=== PATIENT | female | born 1965 | race Caucasian/White ===

== ENCOUNTER 2020-11-24 21:03 | Inpatient (IN) | payer OTHER ==
[~2020-11-24] VITALS: Ht 170.2 cm; Wt 71.7 kg
[2020-11-25] VITALS: BP 118/73
[2020-11-25 01:00] VITALS: BP 118/73
--- NOTE | 2020-11-25 01:00 | NUR ---
RN NOTES: -AT 2230 RECEIVED A PHONE CALL FROM [facility], SPOKE WITH LISA/RN/ER. -PATIENT IS COMING DIRECT ADMIT, 55 Y.O. ,FEMALE, WITH C/O NAUSEA, VOMITING AND DIARRHEA TODAY, TEMPERATURE 99, SPO2-97% RA, SHE RECIEVED DILAUDID 0.5 MGX3, COMPAZINE/ZOFRAN, [place] IVF, COVID RAPID TEST DONE-NEGATIVE, CXR- NEGATIVE FOR ANY DISEASE, CT ABDOMEN/PELVIS--MILD MUCUSAL HYPERNEHANCEMENT OF THE RECTUM SUGGESTED OF PROTOCOLITIS, NO ATB STARTED, AMBULATORY, SKIN IS INTATC, WITH HOME MEDS LISTED, IV CANNULA ON THE RAC G#20, P/U BY CAROLYNN AT 9388.UNDER THE CARE OF .
--- NOTE | 2020-11-25 01:05 | NUR ---
RN NOTES: NEW ADMISSION --DIRECT ADMIT FROM [facility] AT 0030, ACCOMPANIED BY 2 EMT([facility]) VIA KALI,Barbie/OX3-4, ON RA, NO SIGN OF RESPIRATORY DISTRESS, PATIENT VERBALIZED SHE STILL HAVE ABDOMINAL PAIN OF 5-6/10, FEELING NAUSEATED.IV CANNULA IN SITE RAC G#20,PATENT, JUSTOWRITER OPERATOR/AURA NOTIFIED OF THE ADMISSION, AWAITING FOR ORDERS. BODY ASSESSMENT DONE, PATIENT HAS SKIN INTACT, NO BRUISES, DISCOLORATION, SHE ONLY HAVE OLD SURGICAL SCAR UNDER THE RIGHT AND LEFT BREAST,ABDOMEN AREA AND ON HE LEFT LOWER EXTREMITY.ORIENTED TO UNIT AND STAFF, FALL,SAFETY AND ASPIRATION PRECAUTION OBSERVED.MRSA SWAB DONE -SPECIMEN COLLECTED FROM THE LEFT NARES/READY FOR DRESS CAP MAKER.
[2020-11-25] MEDS ORDERED: MAGNESIUM HYDROXIDE 30 ML UDC PO PRN ×2 (02:00→03:30)
[2020-11-25] MEDS ORDERED: ACETAMINOPHEN 325 MG TABLET PO PRN ×2 (02:00→03:30)
[2020-11-25] MEDS ORDERED: Z GUARD REMEDY 2 OZ OINT TP PRN ×2 (02:00→03:30)
[2020-11-25] MEDS ORDERED: IV NS 0.9% 1,000 ML IV PRN ×2 (02:00→03:30)
[2020-11-25] MEDS ORDERED: MAG HYDROX/AL HYDROX/SIMETH 30 ML UDC PO PRN (02:00)
[2020-11-25] MEDS ORDERED: ONDANSETRON HCL/PF 4 MG/2 ML VIAL IVP PRN (02:00)
[2020-11-25] MEDS ORDERED: TRAZ-257 PO (02:43)
[2020-11-25] MEDS ORDERED: LEVO125T8 PO (02:43)
[2020-11-25] MEDS ORDERED: LIOT5TAB7 PO (02:43)
[2020-11-25] MEDS ORDERED: LORA-259 PO (02:43)
[2020-11-25] MEDS ORDERED: PANT40TA49 PO (02:43)
[2020-11-25] MEDS ORDERED: DEXT30TA10 PO (02:43)
[2020-11-25] MEDS ORDERED: ESCI10TA PO (02:43)
--- NOTE | 2020-11-25 02:57 | NUR ---
RN NOTES: -TO START IVF OF NS AT 100 CC/HR, UNABLE TO SCAN, MANUALLY ENTERED THE BARCODE.
[2020-11-25] MEDS: ONDANSETRON HCL/PF 4 MG/2 ML VIAL IVP PRN ×3 (03:40→20:25)
--- NOTE | 2020-11-25 03:53 | NUR ---
RN NOTES: AT 0300 PATIENT IS ASKING FOR HER ANTIEMETIC AND PAIN MEDICATION, F/U IN THE PHARMACY , MEDS RELEASED AT 0335, ZOFRAN GIVEN AT 0340, SHE REQUEST TO GIVE DILAUDID AFTER 15 MINUTES.
[2020-11-25] MEDS: HYDROMORPHONE 1 MG/1 ML DISP.SYRIN IV PRN ×3 (03:57→22:47)
--- NOTE | 2020-11-25 03:57 | NUR ---
RN NOTES: DILAUDID GIVEN PER PATIENT REQUEST, NON PHARMACOLOGIC INTERVENTION RENDERED, WARM BLANKET AND DIM LIT.
--- NOTE | 2020-11-25 04:12 | NUR ---
RN NOTES: -SHE FEELS RELIEVED AFTER THE ZOFRAN, SHE VOMITED VERY SMALL AMOUNT MORE OF SALIVA AND GASTRIC JUICE,PRIOR TO PRN MEDICATION. -NOW SHE SAY SHE FEELS BETTER.ENCOURAGE TO REST AND SLEEP.
--- NOTE | 2020-11-25 05:19 | NUR ---
RN NOTES: -HOME MEDICATION MED RECON DONE, APPLICATIONS INSTRUCTOR/AURA NOTIFIED.AWAITING FOR VERIFICATION
[2020-11-25 06:37] LABS: BASOPHILS % (AUTO) 0.3 % (0.0-2.0); HEMATOCRIT 34 % (33-45); HEMOGLOBIN 11.4 g/dL (11.5-14.8); LYMPHOCYTES # (AUTO) 0.7 /CMM (0.8-4.8); LYMPHOCYTES % (AUTO) 20.1 % (20.0-44.0); MEAN CORPUSCULAR HGB CONC 33 g/dl (31.0-36.0); MEAN CORPUSCULAR VOLUME 83 fL (82-100); MONOCYTES # (AUTO) 0.2 /CMM (0.1-1.30); MONOCYTES % (AUTO) 5.5 % (2.0-12.0); NEUTROPHILS # (AUTO) 2.5 /CMM (1.8-8.9); NEUTROPHILS % (AUTO) 74.1 % (43.0-81.0); PLATELET COUNT (AUTO) 165 /CMM (150-450); WHITE BLOOD COUNT (AUTO) 3.3 K/uL (4.3-11.0)
--- NOTE | 2020-11-25 07:02 | NUR ---
RN NOTES: -ABLE TO REST AND SLEEP, ASSISTED TO THE BATHROOM , IVF ONGOING, CALLS AND NEEDS ANTICIPATED.NO NAUSEA AND VOMITING, NO DIARRHEA IN THE MORNING. -FOR LAB TEST IN THE MORNING, ENDORSED FOR CONTINUITY OF CARE.
[2020-11-25 07:20] LABS: ALANINE AMINOTRANSFERASE 10 U/L (12-78); ALBUMIN 2.9 g/dL (3.4-5.0); ALKALINE PHOSPHATASE 119 U/L (46-116); ASPARTATE AMINOTRANSFERASE 14 U/L (15-37); BILIRUBIN,DIRECT 0.1 mg/dL (0.0-0.2); BILIRUBIN,TOTAL 0.5 mg/dL (0.2-1.0); CALCIUM, SERUM 8.1 mg/dL (8.5-10.1); CARBON DIOXIDE 22 mmol/L (21-32); CHLORIDE 106 mmol/L (98-107); CREATININE 0.7 mg/dL (0.6-1.3); GLUCOSE 98 mg/dL (74-106); MAGNESIUM 1.8 mg/dL (1.8-2.4); PHOSPHORUS 2.9 mg/dL (2.5-4.9); POTASSIUM 3.3 mmol/L (3.5-5.1); SODIUM SERUM 137 mmol/L (136-145); TOTAL PROTEIN, SERUM 5.9 g/dL (6.4-8.2); UREA NITROGEN, BLOOD 13 mg/dL (7-18)
[2020-11-25 07:38] LABS: CHOLESTEROL 106 mg/dL (<200); HDL CHOLESTEROL 47 mg/dL (40-60); LDL 50 mg/dL (0-99); THYROID STIMULATING HORMONE 0.855 uIU/mL (0.358-3.74); TRIGLYCERIDES 65 mg/dL (30-150)
[2020-11-25 08:00] VITALS: BP 116/81
--- NOTE | 2020-11-25 08:05 | NUR ---
MS RN OPENING NOTE RECEIVED PATIENT IN BED, ASLEEP, BUT EASILY AWAKEN BY VERBAL OR TOUCH STIMULI. AMBULATORY WITH STAND BY ASSIST. NO SHORTNESS OF BREATH NOTED. ON ROOM AIR. PATIENT HAS NO S/S OF PAIN OR DISCOMFORT AT THIS TIME. SAFETY MEASURES IN PLACE: CALL LIGHT WITHIN REACH, BED IN LOCKED AND LOWEST POSITION, SIDE RAILS UP. WILL MONITOR PATIENT.
[2020-11-25] MEDS: DOXYCYCLINE 100 MG in IV D5W 100 ML IV SCH ×2 (09:10→20:19)
[2020-11-25] MEDS: HYDROCODONE/APAP 5/325MG TABLET PO PRN (09:32)
--- NOTE | 2020-11-25 09:45 | NUR ---
MS/RN NOTES PATIENT WAS HAVING ANXIETY. PER PATIENT SHE IS TAKING LORAZEPAM 1MG PRN AT HOME. REPORTED ASSESSMENT TO BRENNAN QUINN NP. PROTECTION OFFICER PRESCRIBED LORAZEPAM 1MG PO ONE TIME ONLY. ORDER CARRIED OUT. WILL CONTINUE TO MONITOR.
[2020-11-25] MEDS ORDERED: LORAZEPAM 1 MG TABLET PO ONE (10:00)
[2020-11-25] MEDS ORDERED: POTASSIUM CHLORIDE 20 MEQ TAB.PRT.SR PO SCH (11:30)
--- NOTE | 2020-11-25 13:55 | NUR ---
MS/RN NOTES DR. ZAMBRANO ORDER STOOL COLLECTION FOR C DIFF AND ADVANCE DIET TOLERATED. NOTED AND CARRIED OUT.
[2020-11-25 16:00] VITALS: BP 132/76
--- NOTE | 2020-11-25 17:04 | NUR ---
MS/RN NOTES PATIENT HAS NO ADVERSE REACTION TO FULL LIQUID. TOLERATING WELL. NO NAUSEA AND VOMITING. ADVANCED DIET TO SOFT DIET.
[2020-11-25] MEDS: IV NS 0.9% 1,000 ML IV PRN (17:16)
--- NOTE | 2020-11-25 18:51 | NUR ---
MS DON OPENING NOTES PATIENT IN BED, AWAKE AND ORIENTEDX1-2, A PLEASANT 89 YEAR OLD FEMALE WITH A DIAGNOSIS OF RIGHT FOOT CELLULITIS. PATIENT ALSO HAVE DEMENTIA. AMBULATORY WITH ASSISTANCE. NO SHORTNESS OF BREATH NOTED. ON ROOM AIR. PATIENT HAS NO S/S OF PAIN OR DISCOMFORT AT THIS TIME. IV ACCESS ON RIGHT FOREARM GAUGE #24 PATENT AND ON HEPLOCK. SAFETY MEASURES IN PLACE: CALL LIGHT WITHIN REACH, BED IN LOCKED AND LOWEST POSITION, SIDE RAILS UP. WILL ENDORSE PATIENT TO THE NEXT SHIFT FOR CONTINUITY OF CARE. Addendum: 11/25/20 at 1856 by MIKE MARTINES RN ERROR. WRONG PATIENT.
--- NOTE | 2020-11-25 19:14 | NUR ---
MS RN CLOSING NOTES PATIENT IN BED, ASLEEP,ALERT AND ORIENTED X4, ABLE TO MAKE NEEDS KNOWN. PATIENT HAS PENDING C-DIFF RESULT CURRENTLY ON CONTACT PRECAUTION UNTIL RESULT COMES OUT. AMBULATORY. NO SHORTNESS OF BREATH NOTED. ON ROOM AIR. ALL MEDS AND ORDERS CARRIED OUT. PATIENT HAS NO S/S OF PAIN OR DISCOMFORT AT THIS TIME. SAFETY MEASURES IN PLACE: CALL LIGHT WITHIN REACH, BED IN LOCKED AND LOWEST POSITION, SIDE RAILS UP. WILL ENDORSE PATIENT TO THE NEXT SHIFT FOR CONTINUITY OF CARE.
[2020-11-25 20:00] VITALS: BP 127/72
[2020-11-25] MEDS: MAG HYDROX/AL HYDROX/SIMETH 30 ML UDC PO PRN (20:50)
--- NOTE | 2020-11-25 20:56 | NUR ---
MS RN OPENING NOTES PATIENT WAS SEEN AWAKE IN BED. PATIENT IS ALERT AND ORIENTED X4. PATIENT IS ABLE TO MAKE HER NEEDS KNOWN. PATIENT IS ON ROOM AIR WITH NO RESPIRATORY DISTRESS NOTED. PATIENT HAS AN IV ACCESS ON HER RIGHT AC G#20 WHICH IS INTACT, PATENT, AND FLUSHING WELL. SAFETY MEASURES IMPLEMENTED: BED LOCKED, SIDE RAILS UP X2, AND CALL LIGHT IS WITHIN EASY REACH OF THE PATIENT. WILL CONTINUE TO MONITOR THE PATIENT.
[2020-11-25] MEDS: LORAZEPAM 1 MG TABLET PO SCH (22:12)
[2020-11-25] MEDS: TRAZODONE 50 MG TABLET PO SCH (22:12)
[2020-11-26 07:09] LABS: BASOPHILS % (AUTO) 0.7 % (0.0-2.0); EOSINOPHILS % (AUTO) 2.2 % (0.0-6.0); HEMATOCRIT 32 % (33-45); HEMOGLOBIN 10.6 g/dL (11.5-14.8); LYMPHOCYTES # (AUTO) 0.9 /CMM (0.8-4.8); LYMPHOCYTES % (AUTO) 39.9 % (20.0-44.0); MEAN CORPUSCULAR HGB CONC 33 g/dl (31.0-36.0); MEAN CORPUSCULAR VOLUME 83 fL (82-100); MONOCYTES # (AUTO) 0.3 /CMM (0.1-1.30); MONOCYTES % (AUTO) 11.5 % (2.0-12.0); NEUTROPHILS # (AUTO) 1.1 /CMM (1.8-8.9); NEUTROPHILS % (AUTO) 45.7 % (43.0-81.0); PLATELET COUNT (AUTO) 143 /CMM (150-450); RED BLOOD CELL COUNT(AUTO) 3.88 MIL/uL (4.0-5.2); WHITE BLOOD COUNT (AUTO) 2.3 K/uL (4.3-11.0)
[2020-11-26 07:40] LABS: CALCIUM, SERUM 8.1 mg/dL (8.5-10.1); CREATININE 0.7 mg/dL (0.6-1.3); MAGNESIUM 1.7 mg/dL (1.8-2.4); PHOSPHORUS 2.9 mg/dL (2.5-4.9); POTASSIUM 3.6 mmol/L (3.5-5.1)
--- NOTE | 2020-11-26 07:42 | NUR ---
MS RN OPENING NOTES PATIENT WAS SEEN RESTING IN BED . PATIENT IS ALERT AND ORIENTED X4. PATIENT IS ABLE TO MAKE HER NEEDS KNOWN. PATIENT IS ON ROOM AIR WITH NO RESPIRATORY DISTRESS NOTED. PATIENT HAS AN IV ACCESS ON HER RIGHT AC G#20 WHICH IS INTACT, PATENT, AND FLUSHING WELL. PATIENT IS ON CONTACT ISOLATION PENDING CDIFF RESULTS. SAFETY MEASURES IMPLEMENTED: BED LOCKED, SIDE RAILS UP X2, AND CALL LIGHT IS WITHIN EASY REACH OF THE PATIENT. WILL CONTINUE TO MONITOR THE PATIENT
--- NOTE | 2020-11-26 07:53 | NUR ---
MS RN CLOSING NOTES PATIENT WAS SEEN SLEEPING IN BED. PATIENT IS ALERT AND ORIENTED X4. PATIENT IS ABLE TO MAKE HER NEEDS KNOWN. PATIENT IS ON ROOM AIR WITH NO RESPIRATORY DISTRESS NOTED. PATIENT HAS AN IV ACCESS ON HER RIGHT WRIST G#22 WHICH IS INTACT, PATENT, AND FLUSHING WELL. SAFETY MEASURES IMPLEMENTED: BED LOCKED, SIDE RAILS UP X2, AND CALL LIGHT IS WITHIN EASY REACH OF THE PATIENT. ENDORSED CARE TO DAY SHIFT NURSE.
[2020-11-26 08:00] VITALS: BP 123/71
[2020-11-26] MEDS: ESCITALOPRAM OXALATE (10 MG) 10 MG TABLET PO SCH (08:07)
[2020-11-26] MEDS: PANTOPRAZOLE 40 MG TABLET.DR PO SCH (08:07)
[2020-11-26] MEDS: LIOTHYRONINE SODIUM (5 MCG/TA 5 MCG TABLET PO SCH (08:07)
[2020-11-26] MEDS: LEVOTHYROXINE SODIUM 125 MCG TABLET PO SCH (08:07)
[2020-11-26] MEDS: DOXYCYCLINE 100 MG in IV D5W 100 ML IV SCH ×2 (08:08→20:29)
[2020-11-26] MEDS: ONDANSETRON HCL/PF 4 MG/2 ML VIAL IVP PRN ×3 (08:15→20:28)
[2020-11-26] MEDS: HYDROMORPHONE 1 MG/1 ML DISP.SYRIN IV PRN (09:51)
[2020-11-26 10:44] LABS: ALBUMIN 2.7 g/dL (3.4-5.0); BILIRUBIN,DIRECT 0.1 mg/dL (0.0-0.2); BILIRUBIN,TOTAL 0.3 mg/dL (0.2-1.0); TOTAL PROTEIN, SERUM 5.4 g/dL (6.4-8.2)
[2020-11-26] MEDS: Magnesium 1GM/D5W 100ML PREMIX 100 ML IV SCH ×2 (11:15→12:03)
[2020-11-26] MEDS: IV NS 0.9% 1,000 ML IV PRN (12:03)
[2020-11-26] MEDS: HYDROCODONE/APAP 5/325MG TABLET PO PRN ×2 (14:41→20:29)
[2020-11-26 16:00] VITALS: BP 114/68
--- NOTE | 2020-11-26 18:29 | NUR ---
MS RN CLOSING NOTES PATIENT IN BED,ALERT AND ORIENTED X4, ABLE TO MAKE NEEDS KNOWN. PATIENT IS BREATHING EVENLY AND UNLABORED ON ROOM AIR. NO DISCOMFORT AT THIS TIME. PATIENT HAS PENDING C-DIFF RESULT CURRENTLY ON CONTACT PRECAUTION UNTIL RESULT COMES OUT. PT IS AMBULATORY. ALL MEDS AND ORDERS CARRIED OUT. PRN PAIN MEDICATION GIVEN ORDERED. PATIENT HAS NO S/S OF PAIN OR DISCOMFORT AT THIS TIME. SAFETY MEASURES IN PLACE: CALL LIGHT WITHIN REACH, BED IN LOCKED AND LOWEST POSITION, SIDE RAILS UP. WILL ENDORSE TO ONCOMING SHIFT
--- NOTE | 2020-11-26 19:20 | NUR ---
MS RN NOTE PATIENT IN BED. A/OX4. FAMILY MEMBER IN THE ROOM WITH PATIENT. NO DISTRESS NOTED. NO C/O PAIN DAGO. R. WRIST IV RUNNING NS 100 ML/HR. SAFETY IN PLACE: BED IN LOCKED, LOWEST POSITION. CALL LIGHT WITHIN REACH. WILL CONTINUE TO MONITOR.
[2020-11-26 20:00] VITALS: BP 118/66
--- NOTE | 2020-11-26 20:30 | NUR ---
MS RN NOTES PATIENT C/O PAIN AND NAUSEA. GIVEN ZOFRAN AND NORCO PRN. WILL REASSESS.
[2020-11-26] MEDS: TRAZODONE 50 MG TABLET PO SCH (22:34)
[2020-11-26] MEDS: LORAZEPAM 1 MG TABLET PO SCH (22:34)
[2020-11-26] MEDS: MAG HYDROX/AL HYDROX/SIMETH 30 ML UDC PO PRN (22:46)
--- NOTE | 2020-11-26 22:48 | NUR ---
MS RN NOTES PATIENT REPORTS OF STOMACH ACHe AND ASKED FOR MAALOX. GIVEN PRN.
[2020-11-26] MEDS ORDERED: LEVOFLOXACIN 500 MG /D5W 100ML 100 ML IV ONE (23:06)
[2020-11-26] MEDS ORDERED: METRONIDAZOLE 500MG/ NS 100ML 100 ML IV ONE (23:07)
[2020-11-26] MEDS: METRONIDAZOLE 500MG/ NS 100ML 500 MG in PREMIX 1 EA IV SCH (23:10)
[2020-11-26] MEDS: LEVOFLOXACIN 500 MG /D5W 100ML 500 MG in PREMIX 1 EA IV SCH (23:10)
[2020-11-27] MEDS: IV NS 0.9% 1,000 ML IV PRN ×2 (00:16→10:50)
[2020-11-27] MEDS: ONDANSETRON HCL/PF 4 MG/2 ML VIAL IVP PRN ×3 (02:48→21:33)
[2020-11-27] MEDS: HYDROCODONE/APAP 5/325MG TABLET PO PRN (02:49)
--- NOTE | 2020-11-27 03:02 | NUR ---
MS RN NOTES PATIENT C/O NAUSEA AND 7/10 PAIN IN THE ABDOMEN. ADMINISTERED ZOFRAN AND NORCO 5-325. WILL REASSESS.
[2020-11-27 04:46] VITALS: BP 118/66
--- NOTE | 2020-11-27 05:34 | NUR ---
MS RN NOTES FLAGYL NOT HANGED @0500. FLAGYL NOT ON CASSETTE, MADE THE CHARGE NURSE KNOWN AND SAID IT WAS OKAY TO NOT HANG IT YET SINCE IT HAS ONLY BEEN 6 HRS AND IT'S Q8HRS.
--- NOTE | 2020-11-27 06:21 | NUR ---
MS RN NOTES PATIENT IN BED. A/OX4. NO S/S OF DISTRESS. PATIENT ABLE TO MAKE NEEDS KNOWN AND ALL NEEDS ATTENDED. ISOLATION PRECAUTION IN PLACE. MEDICATIONS ADMINISTERED. SAFETY KEPT IN PLACE THE WHOLE SHIFT: BED IN LOWEST, LOCKED POSITION; CALL LIGHT WITHIN REACH. NO SIGNIFICANT CHANGE SINCE LAST SHIFT. WILL ENDORSE CARE TO MORNING SHIFT NURSE
[2020-11-27 06:27] LABS: BASOPHILS % (AUTO) 0.7 % (0.0-2.0); EOSINOPHILS % (AUTO) 1.9 % (0.0-6.0); HEMATOCRIT 29 % (33-45); HEMOGLOBIN 9.7 g/dL (11.5-14.8); LYMPHOCYTES # (AUTO) 0.8 /CMM (0.8-4.8); LYMPHOCYTES % (AUTO) 33.4 % (20.0-44.0); MEAN CORPUSCULAR HGB CONC 33 g/dl (31.0-36.0); MEAN CORPUSCULAR VOLUME 82 fL (82-100); MONOCYTES # (AUTO) 0.2 /CMM (0.1-1.30); MONOCYTES % (AUTO) 9.2 % (2.0-12.0); NEUTROPHILS # (AUTO) 1.4 /CMM (1.8-8.9); NEUTROPHILS % (AUTO) 54.8 % (43.0-81.0); PLATELET COUNT (AUTO) 134 /CMM (150-450); RED BLOOD CELL COUNT(AUTO) 3.52 MIL/uL (4.0-5.2); WHITE BLOOD COUNT (AUTO) 2.5 K/uL (4.3-11.0)
[2020-11-27 07:02] LABS: CALCIUM, SERUM 7.3 mg/dL (8.5-10.1); CREATININE 0.6 mg/dL (0.6-1.3); MAGNESIUM 1.7 mg/dL (1.8-2.4); PHOSPHORUS 3.2 mg/dL (2.5-4.9); POTASSIUM 4.1 mmol/L (3.5-5.1)
[2020-11-27] MEDS: METRONIDAZOLE 500MG/ NS 100ML 500 MG in PREMIX 1 EA IV SCH ×3 (07:15→21:23)
[2020-11-27] MEDS: PANTOPRAZOLE 40 MG TABLET.DR PO SCH (07:37)
[2020-11-27] MEDS: LEVOTHYROXINE SODIUM 125 MCG TABLET PO SCH (07:37)
--- NOTE | 2020-11-27 07:57 | NUR ---
MS COMMUNITY AIDE Opening Notes: Patient was received in bed alert and orientated x 4. Patient is on room air with no s/s of respiratory distress with even non-labored breathing. Patient on isolation precautions to rule out C-Diff. IV access intact and patent currently infusing NS @ 100 ml/hr. Skin warm and dry to touch. Safety precautions implemented with bed locked, bed in lowest position , bilateral side rails up, bed alarm on and call light within easy reach. Will continue to monitor patient.
[2020-11-27 08:00] VITALS: BP 112/71
[2020-11-27] MEDS: ESCITALOPRAM OXALATE (10 MG) 10 MG TABLET PO SCH (08:14)
[2020-11-27] MEDS: LIOTHYRONINE SODIUM (5 MCG/TA 5 MCG TABLET PO SCH (08:14)
[2020-11-27] MEDS: Magnesium 1GM/D5W 100ML PREMIX 100 ML IV SCH ×2 (10:49→12:15)
[2020-11-27 12:07] LABS: LYMPHOCYTES % (MANUAL) 45 % (16-48); MONOCYTES % (MANUAL) 5 % (0-11.0); NEUTROPHILS % (MANUAL) 50 (42-76)
[2020-11-27] MEDS ORDERED: CEFTRIAXONE 1 G in IV D5W 50 ML IV SCH (14:00)
[2020-11-27 15:57] VITALS: BP 128/67
[2020-11-27 16:07] LABS: H. PYLORI AB IgA <9.0 units (0.0-8.9)
--- NOTE | 2020-11-27 18:06 | NUR ---
MS DATA ANALYST CLOSING NOTES: PATIENT IN BED RESTING COMFORTABLY A&O X 4, ON ROOM AIR WITH NO S/S OF RESPIRATORY DISTRESS W/ EVEN AND NON-LABORED BREATHING. IV ACCESS INTACT AND PATENT INFUSING 100ML/HR OF NS. PATIENT PRESENTING NO SIGNS OF N/V AT THIS TIME. MET ALL OF PATIENTS NEEDS. SKIN KEPT CLEAN, WARM AND DRY TO TOUCH. SAFETY PRECAUTIONS IMPLEMENTED WITH BED LOCKED, BED IN LOWEST POSITION, BILATERAL SIDE RAILS UP AND CALL LIGHT WITHIN EASY REACH. WILL ENDORSE PLAN OF CARE TO UPCOMING RN.
--- NOTE | 2020-11-27 19:26 | NUR ---
MS RN OPENING NOTES: PATIENT WAS SEEN AWAKE IN BED. PATIENT IS A&O X 4. PATIENT IS ON ROOM AIR WITH NO S/S OF RESPIRATORY DISTRESS. PATIENT HAS AN IV ACCESS ON HER RIGHT WRIST WHICH IS INTACT, PATENT, AND FLUSHES WELL. SAFETY PRECAUTIONS IMPLEMENTED WITH BED LOCKED, BED IN LOWEST POSITION, BILATERAL SIDE RAILS UP AND CALL LIGHT WITHIN EASY REACH. WILL ENDORSE PLAN OF CARE TO UPCOMING RN. Addendum: 11/27/20 at 1931 by ARNEL BLACKBURN RN MS RN OPENING NOTES: PATIENT WAS SEEN AWAKE IN BED. PATIENT IS A&O X 4. PATIENT IS ON ROOM AIR WITH NO S/S OF RESPIRATORY DISTRESS. PATIENT HAS AN IV ACCESS ON HER RIGHT WRIST WHICH IS INTACT, PATENT, AND FLUSHES WELL. SAFETY PRECAUTIONS IMPLEMENTED: BED LOCKED, SIDE RAILS UP X2, AND CALL LIGHT IS WITHIN EASY REACH. WILL CONTINUE TO MONITOR THE PATIENT.
[2020-11-27 20:00] VITALS: BP 122/67
[2020-11-27] MEDS: LORAZEPAM 1 MG TABLET PO SCH (21:30)
[2020-11-27] MEDS: TRAZODONE 50 MG TABLET PO SCH (21:30)
[2020-11-27] MEDS: LEVOFLOXACIN 500 MG /D5W 100ML 500 MG in PREMIX 1 EA IV SCH (23:00)
[2020-11-28] MEDS: ONDANSETRON HCL/PF 4 MG/2 ML VIAL IVP PRN ×3 (03:42→15:33)
[2020-11-28] MEDS: HYDROCODONE/APAP 5/325MG TABLET PO PRN ×3 (03:56→15:36)
[2020-11-28] MEDS: METRONIDAZOLE 500MG/ NS 100ML 500 MG in PREMIX 1 EA IV SCH (05:35)
[2020-11-28 06:41] LABS: CALCIUM, SERUM 7.4 mg/dL (8.5-10.1); CREATININE 0.7 mg/dL (0.6-1.3); MAGNESIUM 1.8 mg/dL (1.8-2.4); POTASSIUM 3.9 mmol/L (3.5-5.1)
[2020-11-28] MEDS: IV NS 0.9% 1,000 ML IV PRN (06:49)
--- NOTE | 2020-11-28 07:44 | NUR ---
MS RN OPENING NOTE RECEIVED PATIENT SLEEPING IN BED. EASILY AWAKENED. A/O X4. ON ROOM AIR, TOLERATING WELL. NO SOB NOTED. IN NO APPARENT DISTRESS. IV ACCESS ON R WRIST #22 G, INTACT AND PATENT, NS CURRENTLY RUNNING AT 100 ML/HR. SAFETY MEASURES MAINTAINED. BED IN LOWEST POSITION, BRAKES LOCKED. SIDE RAILS UP X2. CALL LIGHT WITHIN REACH. WILL CONTINUE PLAN OF CARE.
--- NOTE | 2020-11-28 07:49 | NUR ---
MS RN CLOSING NOTES PATIENT WAS SEEN SLEEPING IN BED. PATIENT IS A&O X 4. PATIENT IS ON ROOM AIR WITH NO S/S OF RESPIRATORY DISTRESS. PATIENT IS ABLE TO MAKE HER NEEDS KNOWN. PATIENT HAS AN IV ACCESS ON HER RIGHT WRIST WHICH IS INTACT, PATENT, AND FLUSHES WELL. SAFETY PRECAUTIONS IMPLEMENTED WITH BED LOCKED, SIDE RAILS UP, AND CALL LIGHT WITHIN EASY REACH. ENDORSED CARE TO DAY SHIFT NURSE.
[2020-11-28] MEDS: PANTOPRAZOLE 40 MG TABLET.DR PO SCH (07:50)
[2020-11-28] MEDS: LEVOTHYROXINE SODIUM 125 MCG TABLET PO SCH (07:50)
[2020-11-28 08:00] VITALS: BP 132/80
[2020-11-28] MEDS: LIOTHYRONINE SODIUM (5 MCG/TA 5 MCG TABLET PO SCH (08:03)
[2020-11-28] MEDS: ESCITALOPRAM OXALATE (10 MG) 10 MG TABLET PO SCH (08:03)
--- NOTE | 2020-11-28 08:07 | NUR ---
MS RN NOTE: PAIN PATIENT VERBALIZED PAIN ON HIS STOMACH RADIATING FROM LLQ TO RLQ. PAIN IS 8/10. NORCO 5/325 MG PO PRN GIVEN. WILL CONTINUE TO MONITOR THROUGHOUT THE SHIFT.
[2020-11-28] MEDS ORDERED: METRONIDAZOLE 500 MG TABLET PO SCH (13:00)
[2020-11-28] MEDS ORDERED: METR500T PO (14:27)
[2020-11-28] MEDS ORDERED: LEVO500T90 PO (14:27)
--- NOTE | 2020-11-28 16:50 | NUR ---
MS RN NOTE: DISCHARGE PATIENT DISCHARGED. HEALTH TEACHING AND DISCHARGE INSTRUCTIONS GIVEN. PT VERBALIZED UNDERSTANDING. PT WAS ASSISTED BY SUSAN CUEVAS, VIA WHEELCHAIR. PICKED UP BY A FRIEND (PRIVATE CAR). DISCHARGE PAPERS SIGNED. BELONGINGS GIVEN TO THE PT. IV LINE AND ID WRISTBAND REMOVED.
[2020-11-29 06:07] LABS: *HSV 2 DNA PCR Negative (Negative)
== END 2020-11-28 16:58 | disposition home or self-care (01) | DRG 245 ==
LOC: MED 11-25 00:23
PROVIDERS: ADMIT Nurse Practitioner Acute Care; ATTEND Nurse Practitioner Acute Care
DX: K51.30 Ulcerative (chronic) rectosigmoiditis without complications (principal); D61.818 Other pancytopenia; E44.0 Moderate protein-calorie malnutrition; K21.9 Gastro-esophageal reflux disease without esophagitis; E87.6 Hypokalemia; A04.9 Bacterial intestinal infection, unspecified; A08.4 Viral intestinal infection, unspecified; E03.9 Hypothyroidism, unspecified; D64.9 Anemia, unspecified; Z98.84 Bariatric surgery status; Z79.899 Other long term (current) drug therapy; J45.909 Unspecified asthma, uncomplicated
CPT/HCPCS: 36415; 74018; 80048-TC; 80053-TC; 80061-TC; 80076-TC; 82247-TC; 82248-TC; 83735-TC; 84100-TC; 84443-TC; 84484-TC; 85025-TC; 85610-TC; 85730-TC; 86677; 86704; 87040-TC; 87081-TC; 87806; 89055; A4216; G0378; J0696; J1170; J1956; J2405; J3475; J3490; J7030; J7060